=== PATIENT | female | born 1955 | race Caucasian/White ===

== ENCOUNTER 2019-12-08 13:18 | Emergency (ER) | payer OTHER ==
[~2019-12-08] VITALS: Ht 154.9 cm; Wt 61.2 kg
[2019-12-08 13:18] VITALS: BP_SYST 128
[2019-12-08] MEDS ORDERED: MORPHINE SULFATE 10 MG/ML VIAL IM ONE (14:15)
[2019-12-08] MEDS ORDERED: DIPHENHYDRAMINE INJ 50 MG/ML VIAL IM ONE (14:15)
[2019-12-08 14:33] LABS: BASOPHILS # (AUTO) 0.1 K/uL (0.0-0.2); BASOPHILS % (AUTO) 0.9 % (0.0-2.0); EOSINOPHILS # (AUTO) 0.1 K/uL (0.0-0.4); EOSINOPHILS % (AUTO) 0.7 % (0.0-4.0); HEMOGLOBIN 13.1 g/dL (12.0-16.0); LYMPHOCYTES # (AUTO) 1.7 K/uL (1.0-5.5); LYMPHOCYTES % (AUTO) 21.9 % (20.5-51.5); MEAN CORPUSCULAR HEMOGLOBIN 30 pg (27-31); MEAN CORPUSCULAR HGB CONC 34 % (32-36); MEAN CORPUSCULAR VOLUME 89 fL (79.0-98.0); MONOCYTES # (AUTO) 0.4 K/uL (0.0-1.0); MONOCYTES % (AUTO) 4.8 % (1.7-9.3); NEUTROPHILS # (AUTO) 5.6 K/uL (1.8-7.7); NEUTROPHILS % (AUTO) 71.7 % (40.0-70.0); PLATELET COUNT (AUTO) 282 K/uL (130-430); RED BLOOD CELL COUNT(AUTO) 4.41 MIL/uL (4.2-6.2); RED CELL DISTRIBUTION WIDTH 14.1 % (9.0-15.0); WHITE BLOOD COUNT (AUTO) 7.8 K/uL (4.8-10.8)
[2019-12-08 14:39] LABS: CALCIUM 8.8 mg/dL (8.4-11.0); CREATININE 0.77 mg/dL (0.55-1.30); POTASSIUM 3.5 mmol/L (3.5-5.1)
[2019-12-08 15:25] VITALS: BP_SYST 128
== END 2019-12-08 15:25 | disposition home or self-care (01) ==
LOC: SED 13:18
DX: S42.202A Unspecified fracture of upper end of left humerus, initial encounter for closed fracture (principal); R03.0 Elevated blood-pressure reading, without diagnosis of hypertension; W10.1XXA Fall (on)(from) sidewalk curb, initial encounter; Y93.89 Activity, other specified; Y92.89 Other specified places as the place of occurrence of the external cause; Y99.8 Other external cause status
CPT/HCPCS: 29105; 36415; 70450; 71045; 73030; 80048; 84484; 85025; 93005; 96372; 99285; J1200; J2270

== ENCOUNTER 2021-07-10 11:32 | Inpatient (IN) | payer OTHER, SELFPAY ==
[~2021-07-10] VITALS: Ht 152.4 cm; Wt 71.7 kg
[2021-07-10 11:57] VITALS: BP_SYST 145
[2021-07-10] MEDS ORDERED: NACL 0.9% 1,000 ML IV ONE (16:15)
[2021-07-10] MEDS ORDERED: MAG HYDROX/AL HYDROX/SIMETH 30 ML, LIDOCAINE VISCOUS 2% 15ML (PO) 15 ML, DICYCLOMINE HC... PO ONE ×3 (16:15)
[2021-07-10 16:40] LABS: BASOPHILS # (AUTO) 0.1 K/uL (0.0-0.2); BASOPHILS % (AUTO) 1.4 % (0.0-2.0); EOSINOPHILS # (AUTO) 0.2 K/uL (0.0-0.4); EOSINOPHILS % (AUTO) 2.8 % (0.0-4.0); HEMATOCRIT 38.3 % (36-48); HEMOGLOBIN 13.2 g/dL (12.0-16.0); LYMPHOCYTES # (AUTO) 2.3 K/uL (1.0-5.5); LYMPHOCYTES % (AUTO) 36.7 % (20.5-51.5); MEAN CORPUSCULAR HEMOGLOBIN 31 pg (27-31); MEAN CORPUSCULAR HGB CONC 34 % (32-36); MEAN CORPUSCULAR VOLUME 89 fL (79.0-98.0); MONOCYTES # (AUTO) 0.3 K/uL (0.0-1.0); MONOCYTES % (AUTO) 4.8 % (1.7-9.3); NEUTROPHILS # (AUTO) 3.4 K/uL (1.8-7.7); NEUTROPHILS % (AUTO) 54.3 % (40.0-70.0); PLATELET COUNT (AUTO) 235 K/uL (130-430); RED BLOOD CELL COUNT(AUTO) 4.29 MIL/uL (4.2-6.2); WHITE BLOOD COUNT (AUTO) 6.2 K/uL (4.8-10.8)
[2021-07-10] MEDS ORDERED: MORPHINE 4 MG INJ. 4 MG/ML VIAL IM ONE (17:00)
[2021-07-10 17:01] LABS: CALCIUM 9.2 mg/dL (8.4-11.0); CREATININE 1.08 mg/dL (0.55-1.30)
[2021-07-10 17:15] LABS: ALBUMIN 4.1 g/dL (3.4-4.8); TOTAL BILIRUBIN 0.5 mg/dL (0.0-1.0)
[2021-07-10 17:53] LABS: THYROID STIMULATING HORMONE 267.81 uIu/mL (0.36-3.74)
[2021-07-10 18:52] LABS: BILIRUBIN,URINE NEGATIVE (NEGATIVE); BLOOD, URINE 2+ (NEGATIVE); COLOR,URINE YELLOW (YELLOW); GLUCOSE,URINE NEGATIVE (NEGATIVE); KETONES,URINE NEGATIVE (NEGATIVE); LEUKOCYTE ESTERASE ,URINE NEGATIVE (NEGATIVE); NITRITE, URINE NEGATIVE (NEGATIVE); PH,URINE 5.5 (5.0-8.0); PROTEIN URINE NEGATIVE (NEGATIVE); UROBILINOGEN,URINE 0.2 (0.2-1.0)
[2021-07-10 19:22] LABS: CLARITY/URINE SLIGHTLY HAZY (CLEAR)
[2021-07-10 19:29] LABS: BACTERIA,URINE MODERATE /HPF (None Seen); MUCUS,URINE None Seen /LPF (None Seen)
[2021-07-10] MEDS ORDERED: cefTRIAXone 1 GM in D5W 50 ML IV ONE (19:45)
[2021-07-10] MEDS ORDERED: cefTRIAXone 1 GM VIAL ONE (19:57)
[2021-07-10] MEDS ORDERED: LEVO137T32 PO (20:22)
[2021-07-10] MEDS ORDERED: CEFU250T85 PO ×2 (20:22)
[2021-07-10] MEDS ORDERED: LEVO137C4 PO (20:46)
[2021-07-10] MEDS ORDERED: MORPHINE 2 MG/ML INJ. SYRINGE IVP PRN (21:30)
[2021-07-10] MEDS ORDERED: NITROGLYCERIN 0.4 MG TAB.SUBL SL PRN (21:30)
[2021-07-10] MEDS ORDERED: ACETAMINOPHEN 325 MG TABLET PO PRN (21:30)
[2021-07-10] MEDS ORDERED: ZOLPIDEM TARTRATE 5 MG TABLET PO PRN (21:30)
[2021-07-10] MEDS ORDERED: LORazepam 2 MG/ML VIAL IVP PRN (21:30)
[2021-07-10] MEDS ORDERED: NALOXONE HCL 0.4 MG/ML AMP (NARCAN) IVP PRN (21:30)
[2021-07-10] MEDS: NACL 0.9% 1,000 ML IV SCH (22:04)
[2021-07-11 00:29] VITALS: BP_SYST 145
[2021-07-11 06:48] LABS: BASOPHILS # (AUTO) 0.1 K/uL (0.0-0.2); BASOPHILS % (AUTO) 1.1 % (0.0-2.0); EOSINOPHILS # (AUTO) 0.2 K/uL (0.0-0.4); EOSINOPHILS % (AUTO) 2.8 % (0.0-4.0); HEMATOCRIT 35.8 % (36-48); HEMOGLOBIN 12.1 g/dL (12.0-16.0); LYMPHOCYTES # (AUTO) 2.5 K/uL (1.0-5.5); LYMPHOCYTES % (AUTO) 39.9 % (20.5-51.5); MEAN CORPUSCULAR HEMOGLOBIN 30 pg (27-31); MEAN CORPUSCULAR HGB CONC 34 % (32-36); MEAN CORPUSCULAR VOLUME 90 fL (79.0-98.0); MONOCYTES # (AUTO) 0.4 K/uL (0.0-1.0); MONOCYTES % (AUTO) 6.3 % (1.7-9.3); NEUTROPHILS # (AUTO) 3.2 K/uL (1.8-7.7); NEUTROPHILS % (AUTO) 49.9 % (40.0-70.0); PLATELET COUNT (AUTO) 212 K/uL (130-430); RED CELL DISTRIBUTION WIDTH 13.7 % (9.0-15.0); WHITE BLOOD COUNT (AUTO) 6.3 K/uL (4.8-10.8)
[2021-07-11 07:25] LABS: ANION GAP 7 (5-15); CALCIUM 8.2 mg/dL (8.4-11.0); CHLORIDE 104 mmol/L (98-107); CREATININE 1.05 mg/dL (0.55-1.30); GLUCOSE 82 mg/dL (70-99); POTASSIUM 3.9 mmol/L (3.5-5.1); SODIUM SERUM 138 mmol/L (136-145); UREA NITROGEN, BLOOD 16 mg/dL (8-21)
[2021-07-11 08:00] VITALS: BP_SYST 107
[2021-07-11 08:29] LABS: GFR AFRICAN AMERICAN 68 mL/min (>90)
[2021-07-11] MEDS ORDERED: CLOPIDOGREL BISULFATE 75 MG TABLET PO SCH (09:00)
[2021-07-11] MEDS ORDERED: METOPROLOL TARTRATE 25 MG TABLET PO SCH (09:00)
[2021-07-11 09:29] LABS: CHOLESTEROL 422 mg/dL (<200); HDL CHOLESTEROL 67 mg/dL (>55); LDL CHOLESTEROL 213 mg/dL (<100); TRIGLYCERIDES 425 mg/dL (30-150)
[2021-07-11] MEDS: ASPIRIN 81 MG TAB.CHEW PO SCH (09:29)
[2021-07-11] MEDS: ATORVASTATIN 20 MG TABLET PO SCH (09:29)
[2021-07-11] MEDS: LEVOTHYROXINE SODIUM 0.137 MG TABLET PO SCH (10:00)
[2021-07-11 10:25] LABS: BARBITURATE, URINE NEGATIVE (NEG <=200); BENZODIAZEPINE, URINE NEGATIVE (NEG <=150); COCAINE, URINE NEGATIVE (NEG <=150); METHAMPHETAMINES SCREEN,URINE NEGATIVE (NEG <=500); URINE AMPHETAMINE NEGATIVE (NEG <=500); URINE METHADONE NEGATIVE (NEG <=200)
[2021-07-11 10:26] LABS: CANNABINOID, URINE NEGATIVE (NEG <=50); OPIATE, URINE NEGATIVE (NEG <=100); PHENCYCLIDINE SCREEN,URINE NEGATIVE (NEG <=25); UR TRICYCLIC ANTIDEPRESSANTS NEGATIVE (NEG <=300); URINE OXYCODONE SCREEN NEGATIVE (NEG <=100); URINE PROPOXYPHENE SCREEN NEGATIVE (NEG <=300)
[2021-07-11 11:40] VITALS: BP_SYST 128
[2021-07-11] MEDS: NACL 0.9% 1,000 ML IV SCH (11:48)
[2021-07-11 20:00] VITALS: BP_SYST 112
[2021-07-11] MEDS ORDERED: cefTRIAXone 1 GM in D5W 50 ML IV SCH (20:00)
[2021-07-12] VITALS: BP_SYST 120
[2021-07-12] MEDS: NACL 0.9% 1,000 ML IV SCH (02:06)
[2021-07-12] MEDS: LEVOTHYROXINE SODIUM 0.137 MG TABLET PO SCH ×2 (06:28→08:55)
[2021-07-12 06:46] LABS: BASOPHILS % (AUTO) 0.8 % (0.0-2.0); EOSINOPHILS # (AUTO) 0.2 K/uL (0.0-0.4); EOSINOPHILS % (AUTO) 2.9 % (0.0-4.0); HEMATOCRIT 35.9 % (36-48); HEMOGLOBIN 12.2 g/dL (12.0-16.0); LYMPHOCYTES # (AUTO) 2.3 K/uL (1.0-5.5); LYMPHOCYTES % (AUTO) 43.2 % (20.5-51.5); MEAN CORPUSCULAR HEMOGLOBIN 31 pg (27-31); MEAN CORPUSCULAR HGB CONC 34 % (32-36); MEAN CORPUSCULAR VOLUME 90 fL (79.0-98.0); MONOCYTES # (AUTO) 0.4 K/uL (0.0-1.0); MONOCYTES % (AUTO) 6.6 % (1.7-9.3); NEUTROPHILS # (AUTO) 2.5 K/uL (1.8-7.7); NEUTROPHILS % (AUTO) 46.5 % (40.0-70.0); PLATELET COUNT (AUTO) 218 K/uL (130-430); RED BLOOD CELL COUNT(AUTO) 3.99 MIL/uL (4.2-6.2); RED CELL DISTRIBUTION WIDTH 14.1 % (9.0-15.0); WHITE BLOOD COUNT (AUTO) 5.4 K/uL (4.8-10.8)
[2021-07-12 07:18] LABS: CALCIUM 8.2 mg/dL (8.4-11.0); CREATININE 0.97 mg/dL (0.55-1.30); POTASSIUM 3.9 mmol/L (3.5-5.1)
[2021-07-12] MEDS ORDERED: LEVO500T89 PO (08:10)
[2021-07-12] MEDS ORDERED: LEVO150C4 PO (08:10)
[2021-07-12] MEDS ORDERED: PRO40 PO (08:10)
[2021-07-12] MEDS ORDERED: LIP20 PO (08:10)
[2021-07-12] MEDS ORDERED: PANTOPRAZOLE SODIUM 40 MG TAB PO ONE (08:15)
[2021-07-12 08:18] VITALS: BP_SYST 135
[2021-07-12] MEDS: ATORVASTATIN 20 MG TABLET PO SCH (08:50)
[2021-07-12] MEDS: ASPIRIN 81 MG TAB.CHEW PO SCH (08:57)
[2021-07-12 12:25] VITALS: BP_SYST 135
== END 2021-07-12 13:30 | disposition home health service (06) | DRG 392 ==
LOC: SED 11:32 → STU 20:38
PROVIDERS: ADMIT General Practice; ATTEND General Practice
DX: K21.9 Gastro-esophageal reflux disease without esophagitis (principal); N39.0 Urinary tract infection, site not specified; I24.9 Acute ischemic heart disease, unspecified; E87.1 Hypo-osmolality and hyponatremia; I31.3 Pericardial effusion (noninflammatory); E78.5 Hyperlipidemia, unspecified; Z20.822 Contact with and (suspected) exposure to COVID-19; E89.0 Postprocedural hypothyroidism; Z87.891 Personal history of nicotine dependence; Z91.19 Patient's noncompliance with other medical treatment and regimen; Z79.890 Hormone replacement therapy; E03.9 Hypothyroidism, unspecified
CPT/HCPCS: 36415; 71045; 80048; 80053; 80061; 80307; 81000; 83036; 83735; 83880; 84439; 84443; 84484; 85025; 87040-TC; 87086; 93005; 93306; 96361; 96365; 96372; 99285; G0378; J0696; J2001; J2270; J7060

== ENCOUNTER 2023-12-06 01:32 | Emergency (ER) | payer OTHER ==
[~2023-12-06] VITALS: Ht 167.6 cm; Wt 81.6 kg
[~2023-12-06 01:32] MED LIST: LEVO137C4 PO; LEVO137T32 PO; LIP20 PO; PRO40 PO; SERT-436 PO
[2023-12-06 01:37] VITALS: BP_SYST 142; PULSE 77; RESP 16; TEMP 98.1; O2SAT 98
[2023-12-06] MEDS: ACETAMINOPHEN 500 MG TABLET PO ONE (02:36)
[2023-12-06 02:52] LABS: BASOPHILS # (AUTO) 0.1 K/uL (0.0-0.2); BASOPHILS % (AUTO) 1.2 % (0.0-2.0); EOSINOPHILS # (AUTO) 0.2 K/uL (0.0-0.4); HEMATOCRIT 30.4 % (36-48); HEMOGLOBIN 10.4 g/dL (12.0-16.0); LYMPHOCYTES # (AUTO) 1.9 K/uL (1.0-5.5); LYMPHOCYTES % (AUTO) 27.2 % (20.5-51.5); MEAN CORPUSCULAR HEMOGLOBIN 31 pg (27-31); MEAN CORPUSCULAR HGB CONC 34 % (32-36); MEAN CORPUSCULAR VOLUME 91 fL (79.0-98.0); MONOCYTES # (AUTO) 0.6 K/uL (0.0-1.0); NEUTROPHILS # (AUTO) 4.2 K/uL (1.8-7.7); NEUTROPHILS % (AUTO) 60.6 % (40.0-70.0); PLATELET COUNT (AUTO) 442 K/uL (130-430); RED BLOOD CELL COUNT(AUTO) 3.36 MIL/uL (4.2-6.2); RED CELL DISTRIBUTION WIDTH 14.6 % (9.0-15.0); WHITE BLOOD COUNT (AUTO) 6.9 K/uL (4.8-10.8)
[2023-12-06] MEDS: FUROSEMIDE 40 MG/4 ML VIAL IVP ONE (02:58)
[2023-12-06] MEDS: KETOROLAC TROMETHAMINE 30 MG VIAL IVP ONE (02:59)
[2023-12-06 03:00] LABS: CALCIUM 7.9 mg/dL (8.4-11.0); CREATININE 0.81 mg/dL (0.55-1.30); POTASSIUM 3.8 mmol/L (3.5-5.1); THYROID STIMULATING HORMONE 43.76 uIu/mL (0.36-3.74)
[2023-12-06 03:33] VITALS: BP_SYST 135; PULSE 77; RESP 16; TEMP 98.1; O2SAT 98
== END 2023-12-06 03:39 | disposition home or self-care (01) ==
LOC: SED 01:32
DX: R60.0 Localized edema (principal); F41.9 Anxiety disorder, unspecified; Z79.899 Other long term (current) drug therapy
CPT/HCPCS: 99283; 96374; 71045; 96375; 80048; 83880; 84443; 85025; 36415; J1885; J1940